=== PATIENT | male | born 1985 | race Caucasian/White ===

== ENCOUNTER 2017-12-26 00:55 | Inpatient (IN) | payer OTHER ==
[~2017-12-26] VITALS: Ht 152.4 cm; Wt 88.9 kg
--- NOTE | ~2017-12-26 | EKG ---
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
--- NOTE | ~2017-12-26 | O ---
[facility] [address] [place] [address] OPERATIVE REPORT Name: AMBERRIYA CECILIA Room #: 459-P ADM IN M.R.#: [id number] Admission: 12/26/17 Attend Phys: Juliette Beebe MD Discharge: Date of : 87 Report #: [id number] THIS REPORT FOR: //name// CC: [facility] physician/PCP Juliette Beebe DATE OF SERVICE: 12/27/2017 PREOPERATIVE DIAGNOSES: 1. Left distal tibia fracture. 2. Left talar osteochondral fracture. POSTOPERATIVE DIAGNOSES: 1. Left distal tibia fracture. 2. Left talar osteochondral fracture. PROCEDURE: 1. Left distal tibia open reduction and internal fixation. 2. Left ankle exploration and excision of osteochondral fracture. SURGEON: Devin Macdonald M.D. FISCAL ANALYST: Olivia Collins. ANESTHESIA: General. ESTIMATED BLOOD LOSS: Minimal. DRAINS: None. TOURNIQUET TIME: One hour. DESCRIPTION OF PROCEDURE: The patient brought to the operating room where he was placed under general anesthesia. Once under adequate general anesthesia, his left lower extremity was prepped and draped in sterile manner. The extremity was elevated, exsanguinated and tourniquet placed at 300 mmHg. An anterior lateral incision over the tibiotalar joint was made. This was dissected down through the soft tissue to the joint capsule, which was then incised with a large hematoma emanating from the joint. This was then evacuated and the wound was irrigated copiously. The talus had subluxed and sheared off a portion of the posterolateral talar dome. This is basically cartilage and multiple comminuted fragments of bone. There was essentially nothing to fix therefore the osteochondral defect lesion was removed and the defect was then drilled with K wires to keep blood flowing. The lesion itself was approximately 1.5 cm x 6 mm. This was on the posterolateral dome as stated previously. The joint was then irrigated copiously. A large bone reduction tenaculum was placed [address] [address] OPERATIVE REPORT Name: RIYA CLARK Room #: 459-[facility] IN .R.#: [id number] Admission: 12/26/17 Attend Phys: Juliette Beebe MD Discharge: Date of : 87 Report #: [id number] across the distal tibia fracture and three 4.5 mm cannulated screws were placed in the subchondral position across the fracture site. Excellent fixation and alignment of the fracture was achieved as verified under fluoroscopy and direct visualization of the fracture. The wound was then irrigated copiously and closed with 0 Vicryl in the deep fascia, 2-0 Vicryl in the subcutaneous tissues and arun were used for the skin. The wounds were dressed with Xeroform, 4 x 4s, and a sterile soft compressive dressing was placed. Tourniquet was let down at approximately 1 hour. A short leg cast was placed. Toes were pink and warm with good capillary refill. There were no complications from the procedure. The patient tolerated the procedure well and went to the recovery room without incident. By: [id number] [id number] Devin Macdonald MD /nt
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
[2017-12-26 00:55] VITALS: BP 134/79
[~2017-12-26 00:55] MED LIST: DOXYCYCLINE 10100 MG PO; HYDROXYZINE HCL25 M1 PO; NOHOMEMEDICATIONS; NORCO 5-325 TA1 EACH PO; ZYRTEC10 M2 PO
[2017-12-26 01:18] LABS: ABSOLUTE NEUTROPHILS 3.5 thou/uL (1.4-8.2); BASOPHILS 0.7 % (0.0-2.0); EOSINOPHILS 3.3 % (0.0-3.0); HEMATOCRIT 38.3 % (42.0-52.0); HEMOGLOBIN 13.1 gm/dL (14.0-18.0); MCH 29.9 pg (26.0-34.0); MCHC 34.1 g/dL (28.0-37.0); MCV 87.7 fL (80.0-100.0); MONOCYTES 8.4 % (1.0-8.0); PLATELET COUNT 253 thou/uL (150-400); POLYS 58.6 % (36.0-66.0); RBC 4.37 mil/uL (4.50-6.00); RDW 14.5 % (10.5-14.5)
[2017-12-26 01:33] LABS: ANION GAP 8 mmol/L (7-16); BUN 16 mg/dL (7-18); CALCIUM 8.5 mg/dL (8.5-10.1); CHLORIDE 107 mmol/L (98-107); CO2 25 mmol/L (21-32); CREATININE 1.4 mg/dL (0.7-1.3); GLUCOSE 114 mg/dL (74-106); POTASSIUM 3.4 mmol/L (3.5-5.1); SODIUM 140 mmol/L (136-145)
[2017-12-26 01:39] LABS: ALBUMIN 3.5 g/dL (3.4-5.0); SALICYLATE < 2.8 mg/dL (2.8-20.0); SGOT 59 U/L (15-37); SGPT 57 U/L (30-65); TOTAL BILIRUBIN 0.2 mg/dL (<0.1-1.0)
[2017-12-26 03:30] LABS: TROPONIN-I <0.06 ng/mL (<0.06)
[2017-12-26 05:44] VITALS: BP 132/77
[2017-12-26 08:21] VITALS: BP 136/78
[2017-12-26 12:12] LABS: URINE BILIRUBIN NEGATIVE (Negative); URINE BLOOD NEGATIVE (Negative); URINE CLARITY CLEAR; URINE COLOR YELLOW; URINE GLUCOSE-RANDOM* NEGATIVE (Negative); URINE KETONES NEGATIVE (Negative); URINE LEUKOCYTES NEGATIVE (Negative); URINE NITRITE NEGATIVE (Negative); URINE PROTEIN (DIPSTICK) TRACE (Negative); URINE SPECIFIC GRAVITY >= 1.030 (1.005-1.035); URINE UROBILINOGEN 0.2 E.U./dl (0.2-1.0)
[2017-12-26 12:20] LABS: AMP/METHAMP POSITIVE (Negative); BARBITURATES Negative (Negative); BENZODIAZEPINES Negative (Negative); COCAINE Negative (Negative); METHADONE Negative (Negative); OPIATES POSITIVE (Negative); PCP Negative (Negative)
[2017-12-26 17:14] VITALS: BP 141/65
[2017-12-26 20:03] VITALS: BP 131/72
[2017-12-26 20:30] VITALS: BP 125/74
[2017-12-27 08:20] VITALS: BP 149/78
[2017-12-27 15:44] VITALS: BP 145/82
[2017-12-27 20:00] VITALS: BP 138/65
[2017-12-27 21:00] VITALS: BP 126/74
[2017-12-27 22:00] VITALS: BP 148/86
[2017-12-28] VITALS (8 sets, daily range): BP systolic 126–156; BP diastolic 76–96
[2017-12-28 07:05] LABS: HEMATOCRIT 37.5 % (42.0-52.0); HEMOGLOBIN 12.7 gm/dL (14.0-18.0)
[2017-12-28 07:24] LABS: POTASSIUM 3.9 mmol/L (3.5-5.1)
[2017-12-29 04:58] VITALS: BP 125/81
[2017-12-29 08:37] VITALS: BP 136/64
[2017-12-29 12:06] VITALS: BP 136/64
[2017-12-29] MEDS ORDERED: WHEELCHAIR1 EACH MC (13:05)
== END 2017-12-29 14:50 | disposition home or self-care (01) | DRG 494 ==
LOC: ER 00:55 → EROBS 03:16 → 4W 03:16
PROVIDERS: Emergency Medicine; Orthopaedic Surgery Foot and Ankle Surgery
PROC: 0SBG0ZZ Excision of Left Ankle Joint, Open Approach (ICD-10-PCS; principal; 2017-12-27)
PROC: 0QSH04Z Reposition Left Tibia with Internal Fixation Device, Open Approach (ICD-10-PCS; principal; 2017-12-27)
DX: S82.832A Other fracture of upper and lower end of left fibula, initial encounter for closed fracture (principal); S82.892A Other fracture of left lower leg, initial encounter for closed fracture; S92.001A Unspecified fracture of right calcaneus, initial encounter for closed fracture; F17.210 Nicotine dependence, cigarettes, uncomplicated; S92.102A Unspecified fracture of left talus, initial encounter for closed fracture; F12.90 Cannabis use, unspecified, uncomplicated; F10.129 Alcohol abuse with intoxication, unspecified; Z79.899 Other long term (current) drug therapy; W13.2XXA Fall from, out of or through roof, initial encounter; Y93.89 Activity, other specified; Y92.89 Other specified places as the place of occurrence of the external cause; Y99.8 Other external cause status
CPT/HCPCS: 10047; 50010; 50101; 50386; 50679; 51332; 51412; 56524; 56525; 57091; 62110; 62900; 70005